=== PATIENT | female | born 1990 | race Caucasian/White ===

== ENCOUNTER 2021-09-15 22:32 | Inpatient (IN) ==
[2021-09-15] MEDS ORDERED: OXYTOCIN 30 UNITS/500 ML BAG IV PRN (23:15)
[2021-09-15 23:52] LABS: Hematocrit (blood only) 39.6 % (37-47); Hemoglobin 13.3 g/dL (12.0-16.0); Mean Corpuscular Hemoglobin 32.1 pg (25-34); Mean Corpuscular Hgb Conc 33.6 g/dL (32-36); Mean Corpuscular Volume 95.7 fL (80-100); Mean Platelet Volume 10.2 fL (7.4-10.4); Platelet Count 283 K/uL (130-400); RDW Coefficient of Variation 13.5 % (11.5-14.5); RDW Standard Deviation 46.2 fL (36.4-46.3); Red Blood Count 4.14 M/uL (4.2-5.4); White Blood Count 11.15 K/uL (4.8-10.8)
[2021-09-16] MEDS ORDERED: OXYTOCIN 30 UNITS/500 ML BAG IV PRN (01:16)
--- NOTE | 2021-09-16 01:16 | Labor Progress Brief Note ---
Date of Service September 16, 2021 Subjective Returned from ambulating, definitely feeling more contractions than before Assessment & Plan (1) PROM (premature rupture of membranes): Plan: Beginning to feel contractions but still not making cervical change. Discussed augmentation with pitocin due to PROM. Patient is 36w5d but is known GBS neg so no abx needed. Epidural on request. Patient and FOB deny having questions for me at this time. Admission and Anticipated Discharge Date Admission Date: September 15, 2021 Physical Exam Genitourinary: LOF clear (copious) FHT Cat 1 [place] Q4 Results & Data ([facility]) Vital Signs (Past 12 Hours) Vital Signs Temp Pulse Resp BP 09/15/21 23:01 64 122/77 09/15/21 22:53 97.9 F 78 18 140/86 09/15/21 22:50 97.9 F 78 18 140/86 09/15/21 22:49 72 141/89 H Coding Level of Care Code None Diagnoses PROM (premature rupture of membranes) O42.90
[2021-09-16] MEDS: LACTATED RINGER'S 1,000 ML IV PRN ×2 (01:30→05:48)
[2021-09-16] MEDS ORDERED: ePHEDrine sulfate 50 MG/ML AMP ONE (02:37)
[2021-09-16] MEDS ORDERED: SODIUM CHLORIDE 0.9% INJ 10 ML VIAL ONE (02:37)
[2021-09-16] MEDS ORDERED: BUPIVACAINE 0.25% 30 ML VIAL ONE (02:37)
[2021-09-16] MEDS ORDERED: fentaNYL 2MCG/ML ROPIVACAINE 1.25MG/ML 100 ML BAG EPI ONE (02:38)
[2021-09-16] MEDS ORDERED: fentaNYL citrate 100 MCG/2 ML VIAL ONE (02:38)
--- NOTE | 2021-09-16 02:56 | Anesthesiology Consultation ---
Date of Service September 16, 2021 Assessment & Plan Chart Review Chart Review: Acceptable Risk for Surgery, Patient NOT seen in Pre Admission Testing and Acceptable Risk for Labor Epidural Consults Requested none ASA ASA2 Proposed Anesthesia Anesthesia Type: Labor Epidural and CSE History Height/Weight Height: 5 ft 6 in Weight: 88.451 kg Allergies Allergy/AdvReac Type Severity Reaction Status Date / Time No Known Allergies Allergy Verified 09/11/21 14:56 Medications Home Medications Medication Instructions Recorded Confirmed Last Taken omeprazole 20 mg capsule,delayed 20 mg PO BID 02/21/21 09/15/21 09/15/21 release vit no.95-ferrous 1 tab PO DAILY 09/15/21 09/15/21 09/15/21 fumarate 28 mg-folic acid 800 mcg tablet () Active Medications Generic Name Dose Route Start Last Admin Trade Name Freq PRN Reason Stop Dose Admin Lactated Ringer's 1,000 mls @ 125 mls/hr 09/15/21 23:15 09/16/21 02:51 Lr IV 09/17/21 23:14 999 mls/hr .Q8H PRN Infusion L&D Protocol Protocol Oxytocin 30 units in 500 mls @ 3 mls/hr 09/16/21 01:16 09/16/21 02:01 Pitocin IV 09/18/21 01:15 0.18 units/hr .Q24H PRN 3 mls/hr Labor Induction/Augmentation Titration Protocol 0.18 UNITS/HR Past Medical History Medical History History of chicken pox Exercise / Class Metabolic Activity II 4-5 Yardwork/Stairs/Walk up hill Past Family History Family History Grandmother (Paternal) Breast cancer Grandmother (Maternal) Diabetes Father Myocardial infarction Stroke Grandfather (Paternal) Heart disease Denies family history of Ovarian cancer Prostate cancer Colorectal cancer Past Surgical History Surgical History H/O wisdom tooth extraction Past Anesthesia History No Hx of Anesthesia Complications and No Family Hx of Anesthesia Complications History of PONV No Hx of PONV and No Hx of Motion Sickness Social History Smoking Status: Never smoker Hx Alcohol Use: No Hx Substance Use: No Physical Exam Vital Signs Last Vital Signs Temp 36.8 C 09/16/21 01:10 Pulse 76 09/16/21 02:48 Resp 18 09/16/21 01:32 BP 143/89 H 09/16/21 02:34 Pulse Ox 100 09/16/21 02:48 Testing Laboratory Results 09/15/21 23:43
[2021-09-16] MEDS ORDERED: LIDOCAINE 1% LOCAL 20 ML VIAL ONE (03:21)
[2021-09-16] MEDS ORDERED: fentaNYL 2MCG/ML ROPIVACAINE 1.25MG/ML 100 ML BAG EPI PRN (03:38)
[2021-09-16] MEDS ORDERED: NALBUPHINE HCL INJ 10 MG/ML AMP IV PRN (03:38)
[2021-09-16] MEDS ORDERED: diphenhydrAMINE 50 MG/ML VIAL IV PRN (03:38)
[2021-09-16] MEDS ORDERED: NALOXONE HCL 0.4 MG/1 ML VIAL/CARP IV PRN (03:38)
[2021-09-16] MEDS ORDERED: ePHEDrine sulfate 50 MG/ML AMP IV PRN (03:38)
[2021-09-16] MEDS ORDERED: NALOXONE HCL 1 MG in SODIUM CHLORIDE 0.9% 1000ML 1,000 ML IV PRN (03:38)
[2021-09-16] MEDS ORDERED: PROMETHAZINE HCL 25 MG in SODIUM CHLORIDE 0.9% 50 ML IV PRN (03:38)
[2021-09-16] MEDS ORDERED: ONDANSETRON INJ 2 MG/ML 2 ML VIAL IV PRN (03:38)
--- NOTE | 2021-09-16 07:16 | Labor Progress Brief Note ---
Date of Service September 16, 2021 Subjective Comfortable with epidural Assessment & Plan (1) PROM (premature rupture of membranes): Plan: Progressing well, anticipate 2nd stage soon Admission and Anticipated Discharge Date Admission Date: September 15, 2021 Physical Exam Genitourinary: Per RN exam, 9cm at last check. FHT reviewed, Cat 1 [place] Q2 Results & Data ([facility]) Vital Signs (Past 12 Hours) Vital Signs Temp Pulse Resp BP Pulse Ox 09/16/21 07:12 91 H 100 09/16/21 07:07 106 H 100 09/16/21 07:02 104 H 100 09/16/21 07:00 101 H 124/84 09/16/21 06:57 103 H 100 09/16/21 06:52 82 100 09/16/21 06:47 84 100 09/16/21 06:45 82 121/81 09/16/21 06:42 89 99 09/16/21 06:37 84 100 09/16/21 06:32 83 100 09/16/21 06:31 75 123/80 09/16/21 06:29 81 124/81 09/16/21 06:27 84 100 09/16/21 06:22 76 100 09/16/21 06:17 74 100 09/16/21 06:14 93 H 127/84 09/16/21 06:13 68 99 09/16/21 06:07 70 100 09/16/21 06:02 75 100 09/16/21 06:00 75 126/85 09/16/21 05:57 70 100 09/16/21 05:52 71 100 09/16/21 05:47 71 100 09/16/21 05:46 72 125/77 09/16/21 05:42 66 100 09/16/21 05:37 68 100 09/16/21 05:33 60 100 09/16/21 05:30 71 116/56 L 09/16/21 05:27 59 L 99 09/16/21 05:23 55 L 96 09/16/21 05:18 55 L 96 09/16/21 05:14 60 116/63 09/16/21 05:12 56 L 96 09/16/21 05:07 56 L 97 09/16/21 05:04 56 L 94 09/16/21 05:03 58 L 98 09/16/21 05:00 98.2 F 53 L 110/57 L 09/16/21 04:57 57 L 96 09/16/21 04:54 58 L 94 09/16/21 04:52 57 L 96 09/16/21 04:47 58 L 96 09/16/21 04:46 53 L 109/57 L 09/16/21 04:43 54 L 96 09/16/21 04:38 54 L 97 09/16/21 04:33 65 97 09/16/21 04:29 53 L 106/63 09/16/21 04:28 54 L 98 09/16/21 04:23 56 L 98 09/16/21 04:18 55 L 99 09/16/21 04:15 75 113/72 09/16/21 04:12 60 94 09/16/21 04:08 56 L 95 09/16/21 04:06 59 L 93 09/16/21 04:03 61 96 09/16/21 03:59 69 93 09/16/21 03:58 63 96 09/16/21 03:56 65 110/65 09/16/21 03:53 63 96 09/16/21 03:52 62 107/63 09/16/21 03:51 66 94 09/16/21 03:48 65 98 09/16/21 03:46 59 L 109/64 09/16/21 03:44 55 L 111/69 09/16/21 03:43 74 98 09/16/21 03:42 74 99/58 L 09/16/21 03:40 74 100/57 L 09/16/21 03:38 69 110/66 98 09/16/21 03:36 68 109/67 09/16/21 03:34 64 109/64 09/16/21 03:33 69 100 09/16/21 03:32 68 102/59 L 09/16/21 03:30 70 95/55 L 09/16/21 03:28 62 98 09/16/21 03:23 80 99 09/16/21 03:18 84 100 09/16/21 03:13 81 100 09/16/21 03:08 86 100 09/16/21 03:05 98.2 F 09/16/21 03:03 77 100 09/16/21 02:58 76 100 09/16/21 02:53 86 100 09/16/21 02:48 76 100 09/16/21 02:43 79 100 09/16/21 02:34 68 143/89 H 09/16/21 01:32 62 18 123/76 09/16/21 01:10 98.2 F 09/15/21 23:01 64 122/77 09/15/21 22:53 97.9 F 78 18 140/86 09/15/21 22:50 97.9 F 78 18 140/86 09/15/21 22:49 72 141/89 H Coding Level of Care Code None Diagnoses PROM (premature rupture of membranes) O42.90
--- NOTE | 2021-09-16 08:22 | Delivery Summary ---
Vaginal Delivery Summary Date of Service September 16, 2021 Vaginal Delivery Summary DIAGNOSES: 1. Beck intrauterine at 36w5d gestation. 2. PROM with IOL. 3. Group B Streptococcus Neg. PROCEDURE: Spontaneous vaginal delivery without laceration. SURGEON: Briana Fam MD. IMPLEMENTATION ADVISOR: None. ESTIMATED BLOOD LOSS: 250 mL. COMPLICATIONS: None. PLACENTA: Spontaneous and intact with a 3-vessel cord. DISPOSITION: Stable to labor and delivery. DESCRIPTION: The patient pushed well and brought the head to in DOA position. The infant's head was allowed to deliver with contraction force and no further active pushing, with the perineum protected during this time. There was no nuchal cord. The right shoulder was anterior. The shoulders and body delivered without any difficulty, and the was placed on the maternal abdomen. It was vigorous and moving all extremities, and making respiratory efforts. The cord was doubly clamped by the MD and then cut by SUSANNAH Webber. The placenta delivered spontaneously and was noted to be intact and with a 3VC. The cervix, vagina and perineum were examined and were found to be without defect requiring repair. The fundus was firm and lochia minimal immediately after delivery. [facility] [place]aginal Delivery Charge Vaginal Delivery Codes: 78656 global code for the antepartum, delivery, and post-
[2021-09-16] MEDS ORDERED: ACETAMINOPHEN 325 MG TAB PO PRN (08:46)
[2021-09-16] MEDS ORDERED: oxyCODONE/ACETAMINOPHEN 5mg/325mg TAB PO PRN (08:46)
[2021-09-16] MEDS ORDERED: HYDROCORTISONE ACETATE 25 MG SUPP PR PRN (08:46)
[2021-09-16] MEDS ORDERED: DIPHTHERIA/TETANUS/PERTUSSIS 0.5 ML SYR/VIAL IM ONE (08:46)
[2021-09-16] MEDS ORDERED: BENZOCAINE 20% AER SPR 82.5 GM CAN EXT PRN (08:46)
[2021-09-16] MEDS ORDERED: SUPERCREAM 0.870% 15 GM JAR EXT PRN (08:46)
--- NOTE | 2021-09-16 10:10 | Obstetrical Progress Note ---
Date of Service September 16, 2021 Assessment & Plan Admission and Anticipated Discharge Date Admission Date: September 15, 2021 Subjective Called to room by RN for small amount of bleeding. I came to room for exam. Fundus firm, no clots expressed with fundal massage. I performed speculum exam, evaluated vagina and cervix. The cervix was intact, no lacerations or bleeding. There was a small amount of bleeding coming from an internal vaginal laceration in the posterior vagina - deep to the introitus, so not a perineal laceration, and perineum itself is intact. Patient's epidural has already been removed. Since the amount of bleeding was small - approx 50cc during the entirety of my evaluation, exam, discussion, and also because application of direct pressure to the oozing lacerated area appeared to stop the bleeding, I offered patient that we could use lidocaine to try to numb area and place sutures to obtain hemostasis, vs try to use vaginal packing to apply pressure to the area. She elected against suturing - therefore, placed cummings catheter to empty bladder while packing in place. One lap sponge was rolled and placed in vagina to apply pressure. Vital signs stable, will check H/H now. Results & Data ([facility]) Vital Signs (Past 12 Hours) Vital Signs Temp Pulse Resp BP Pulse Ox 09/16/21 09:52 75 132/83 09/16/21 09:37 74 130/71 09/16/21 09:22 73 115/67 09/16/21 09:07 84 121/72 09/16/21 08:52 76 116/79 09/16/21 08:38 20 09/16/21 08:37 80 119/72 09/16/21 08:27 76 100 09/16/21 08:23 82 20 131/70 09/16/21 08:22 79 100 09/16/21 08:17 81 100 09/16/21 08:15 88 117/75 09/16/21 08:12 136 H 98 09/16/21 08:11 127 H 92 09/16/21 08:07 102 H 98 09/16/21 08:02 84 98 09/16/21 08:01 20 09/16/21 08:00 88 129/69 09/16/21 07:57 92 H 99 09/16/21 07:52 86 99 09/16/21 07:47 87 151/90 H 99 09/16/21 07:46 20 09/16/21 07:42 135 H 100 09/16/21 07:37 104 H 98 09/16/21 07:34 113 H 91 09/16/21 07:32 89 100 09/16/21 07:31 20 09/16/21 07:30 120 H 145/82 H 09/16/21 07:27 102 H 100 09/16/21 07:22 109 H 99 09/16/21 07:17 95 H 143/79 H 100 09/16/21 07:15 36.7 C 20 09/16/21 07:12 91 H 100 09/16/21 07:07 106 H 100 09/16/21 07:02 104 H 100 09/16/21 07:00 101 H 124/84 09/16/21 06:57 103 H 100 09/16/21 06:52 82 100 09/16/21 06:47 84 100 09/16/21 06:45 82 121/81 09/16/21 06:42 89 99 09/16/21 06:37 84 100 09/16/21 06:32 83 100 09/16/21 06:31 75 123/80 09/16/21 06:29 81 124/81 09/16/21 06:27 84 100 09/16/21 06:22 76 100 09/16/21 06:17 74 100 09/16/21 06:14 93 H 127/84 09/16/21 06:13 68 99 09/16/21 06:07 70 100 09/16/21 06:02 75 100 09/16/21 06:00 75 126/85 09/16/21 05:57 70 100 09/16/21 05:52 71 100 09/16/21 05:47 71 100 09/16/21 05:46 72 125/77 09/16/21 05:42 66 100 09/16/21 05:37 68 100 09/16/21 05:33 60 100 09/16/21 05:30 71 116/56 L 09/16/21 05:27 59 L 99 09/16/21 05:23 55 L 96 09/16/21 05:18 55 L 96 09/16/21 05:14 60 116/63 09/16/21 05:12 56 L 96 09/16/21 05:07 56 L 97 09/16/21 05:04 56 L 94 09/16/21 05:03 58 L 98 09/16/21 05:00 36.8 C 53 L 110/57 L 09/16/21 04:57 57 L 96 09/16/21 04:54 58 L 94 09/16/21 04:52 57 L 96 09/16/21 04:47 58 L 96 09/16/21 04:46 53 L 109/57 L 09/16/21 04:43 54 L 96 09/16/21 04:38 54 L 97 09/16/21 04:33 65 97 09/16/21 04:29 53 L 106/63 09/16/21 04:28 54 L 98 09/16/21 04:23 56 L 98 09/16/21 04:18 55 L 99 09/16/21 04:15 75 113/72 09/16/21 04:12 60 94 09/16/21 04:08 56 L 95 09/16/21 04:06 59 L 93 09/16/21 04:03 61 96 09/16/21 03:59 69 93 09/16/21 03:58 63 96 09/16/21 03:56 65 110/65 09/16/21 03:53 63 96 09/16/21 03:52 62 107/63 09/16/21 03:51 66 94 09/16/21 03:48 65 98 09/16/21 03:46 59 L 109/64 09/16/21 03:44 55 L 111/69 09/16/21 03:43 74 98 09/16/21 03:42 74 99/58 L 09/16/21 03:40 74 100/57 L 09/16/21 03:38 69 110/66 98 09/16/21 03:36 68 109/67 09/16/21 03:34 64 109/64 09/16/21 03:33 69 100 09/16/21 03:32 68 102/59 L 09/16/21 03:30 70 95/55 L 09/16/21 03:28 62 98 09/16/21 03:23 80 99 09/16/21 03:18 84 100 09/16/21 03:13 81 100 09/16/21 03:08 86 100 09/16/21 03:05 36.8 C 09/16/21 03:03 77 100 09/16/21 02:58 76 100 09/16/21 02:53 86 100 09/16/21 02:48 76 100 09/16/21 02:43 79 100 09/16/21 02:34 68 143/89 H 09/16/21 01:32 62 18 123/76 09/16/21 01:10 36.8 C 09/15/21 23:01 64 122/77 09/15/21 22:53 36.6 C 78 18 140/86 09/15/21 22:50 36.6 C 78 18 140/86 09/15/21 22:49 72 141/89 H PG Care Time/CCT Total # of Minutes Spent Total Time Spent with Patient: Total time spent is greater than 50% in coordination of care (as documented) at patient's floor/unit and/or counseling patient: Coding Level of Care Code None
[2021-09-16 10:24] LABS: Hematocrit (blood only) 39.5 % (37-47); Hemoglobin 13.1 g/dL (12.0-16.0)
--- NOTE | 2021-09-16 10:28 | Anesthesia Procedure Note ---
Date of Service September 16, 2021 Anesthesia Post Epidural Note Vital Signs Vital Signs: Temp Pulse Resp BP Pulse Ox 36.7 C 71 20 121/73 100 09/16/21 07:15 09/16/21 10:22 09/16/21 09:07 09/16/21 10:22 09/16/21 08:27 Notes Mental Status: alert / awake / arousable and participated in evaluation Patient Amnestic to Procedure: No Nausea / Vomiting: adequately controlled Pain: adequately controlled Airway Patency, RR, SpO2: stable & adequate BP & HR: stable & adequate Hydration State: stable & adequate Neuraxial Anesthesia: was administered and sensory block is resolving Anesthetic Complications: no major complications apparent and Pt Satisfied with anesthetic care Epidural: Removed without complications and With tip intact
[2021-09-16] MEDS: IBUPROFEN 600 MG TAB PO PRN ×2 (10:54→20:44)
[2021-09-16] MEDS: DOCUSATE SODIUM 100 MG CAP PO SCH (20:44)
--- NOTE | 2021-09-17 07:10 | Obstetrical Progress Note ---
Date of Service September 17, 2021 Assessment & Plan (1) Encounter for supervision of normal intrauterine in primigravida, antepartum: Plan: 31 yo PPD 1 s/p at 36 5/7 weeks -Possible D/C today if pt feels up to it -Continue routine care -Vitals reviewed- HDS, afebrile -O+, GBS-, Rubella immune -Encourage ambulation, regular diet -Pain control with ibuprofen, acetaminophen PRN -Encouraged -F/u in [address] Fam Admission and Anticipated Discharge Date Admission Date: September 15, 2021 Supervising Physician Co-Signing Physician Notes Resident Physician Supervision Note: I interviewed and examined the patient. Discussed with Dr. Peralta and agree with findings and plan as documented in the note. Any exceptions or clarifications are listed here: PPD#1 doing well. Bleeding stopped after removal of vaginal packing yesterday evening. Considering DC home today - reviewed DC instructions. Documented By: Linh Domínguez, Subjective PPD 1 s/p . Patient seen and examined at bedside. Reports no acute overnight events. Ambulating and voiding. Passing gas. No BM yet. Regular diet w/o N/V. Lochia small amount. Breast feeding without difficulty. Pain 1/10 and well controlled with motrin. Did have the complaint of bleeding from vagina yesterday, but this has improved significantly and is no longer a concern to the pt. Review of Systems Review of Systems: Denies fevers/chills. Denies dyspnea, cough. Denies chest pain. Denies breast pain or discharge. Denies dysuria. Denies headache. Denies back pain. Physical Exam Physical Exam: General: Alert, oriented, no acute distress Cardiac: Regular rate and rhythm, normal S1, S2. No murmurs appreciated. Respiratory: Clear to auscultation b/l with good air flow entry, symmetric chest rise and fall. No wheezes or crackles. No increased work of breathing or accessory muscle use Abdomen: Soft, nontender, nondistended. Fundus firm and palpable at 1 cm below umbilicus. No guarding or rebound. Skin: No rashes or lesions Extremities: Warm, dry, well-perfused with capillary refill <2s b/l. No lower extremity edema, erythema or swelling. Negative Angus's sign b/l. Results & Data ([facility]) Vital Signs (Past 12 Hours) Vital Signs Temp Pulse Resp BP Pulse Ox 09/17/21 03:45 36.8 C 67 20 114/77 99 09/17/21 00:25 36.9 C 77 20 111/71 98 Resident Activity Tracking Resident Involvement: Resident Care Provided Care Provided: OB Delivery
[2021-09-17] MEDS ORDERED: PRENATAL VITAMIN 1 TAB PO SCH (08:00)
[2021-09-17] MEDS: DOCUSATE SODIUM 100 MG CAP PO SCH (08:26)
[2021-09-17] MEDS: IBUPROFEN 600 MG TAB PO PRN (08:27)
[2021-09-17 08:43] LABS: Hematocrit (blood only) 37.8 % (37-47); Hemoglobin 12.4 g/dL (12.0-16.0); Mean Corpuscular Hemoglobin 31.4 pg (25-34); Mean Corpuscular Hgb Conc 32.8 g/dL (32-36); Mean Corpuscular Volume 95.7 fL (80-100); Mean Platelet Volume 10.3 fL (7.4-10.4); Platelet Count 228 K/uL (130-400); RDW Coefficient of Variation 13.8 % (11.5-14.5); RDW Standard Deviation 47.6 fL (36.4-46.3); Red Blood Count 3.95 M/uL (4.2-5.4)
== END 2021-09-17 17:50 | disposition home or self-care (01) | DRG 807 ==
LOC: OPB 22:32 → 4S1 22:35 → 4S2 09-16 12:32

== ENCOUNTER 2024-06-03 03:36 | Inpatient (IN) ==
[2024-06-03] MEDS ORDERED: CALCIUM CARBONATE 500 MG CHEWABLE TAB PO PRN (04:20)
[2024-06-03] MEDS ORDERED: LIDOCAINE 1% LOCAL 20 ML VIAL INFIL PRN (04:20)
--- NOTE | 2024-06-03 04:20 | History & Physical Report ---
Date of Service June 03, 2024 Assessment & Plan (1) 39 weeks gestation of : (2) PROM (premature rupture of membranes): Plan admit,iv,labs, pitocin. fhts categ 1. History of Present Illness Chief Complaint: leaking fluid Primary Care Provider: NO PCP 33yo at 39 wks ega presents to LD with above cc. Clear fluid leaking. No ctx. No vb. +FM PNC unremarkable. PNL rh pos, ri, gbs neg. OBH: ptd at 36+wk GYNH: nl paps, no stds Allergies Allergy/AdvReac Type Severity Reaction Status Date / Time No Known Allergies Allergy Verified 06/03/24 03:55 Home Medications Medication Instructions Recorded Confirmed Type omeprazole 20 mg capsule,delayed 20 mg PO QAM 02/21/21 06/03/24 History release vit no.95-ferrous 1 tab PO QAM 09/15/21 06/03/24 History fumarate 28 mg-folic acid 800 mcg tablet () ferrous sulfate 325 mg (65 mg 325 mg PO Q OTHER DAY 04/20/24 06/03/24 History iron) tablet (Feosol) Patient History Medical History (Updated 06/03/24 @ 04:20 by María Shipman MD, FACOG) History of gastroesophageal reflux (GERD) (10/06/17) History of chicken pox Molar History of COVID-19 04/2022- asymptomatic, tested d/t positive contact () Surgical History History of D&C molar 2022 History of esophagogastroduodenoscopy (EGD) Hx of colonoscopy H/O wisdom tooth extraction Family History Grandmother (Paternal) Breast cancer Grandmother (Maternal) Diabetes Father Myocardial infarction Stroke Grandfather (Paternal) Heart disease Other No family history of adverse response to anesthesia Denies family history of Ovarian cancer Prostate cancer Colorectal cancer Social History Smoking Status: Never smoker Second Hand Exposure: No; Do You Dip or Chew Tobacco: No; Hx Alcohol Use: No Hx Substance Use: No Preferred Language: Croatian Communication Ability: Effective Visual Impairment: No Limitations Hearing Ability: Normal Tar Distributor Operator Required: No Beliefs That Will Affect Care: None marital status: marital status details: Gonsalo Kelly (33) [phone] Current Living Situation: Spouse Current Living Situation Comment: House with and daughter current occupational status: employed 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 Other Information That Helps Us Care for You: No Feels Safe at Home: Yes Safety Concerns: Feels Safe At This Time Assistive Devices: None Review of Systems as per Subjective / HPI Physical Exam Constitutional: WD/WN, vitals as above Respiratory: normal respiratory effort, lungs clear to auscultation Cardiovascular: Rate/Rhythm: regular rate and regular rhythm Gastrointestinal (Abdomen): soft gravid nt efw 7-8# Musculoskeletal: no edema nontender calves Neurologic: grossly normal Psychiatric: A+Ox3, euthymic affect Genitourinary: Manual OB Exam: + cervical dilation 4 cm, + cervical effacement 80%, + station -2 and + amniotic fluid (gross srom) clear OB Exam Monitor Tracing: + external FHT monitor used, + external uterine monitor used (q4), + category I and + normal FHT variability Results & Data Vital Signs (Past 12 Hours) Vital Signs Temp Pulse Resp BP O2 Del Method 06/03/24 04:02 65 122/75 06/03/24 03:57 98.4 F 18 Room Air Coding Level of Care Code None Diagnoses 39 weeks gestation of Z3A.39 PROM (premature rupture of membranes) O42.90
[2024-06-03] MEDS: LACTATED RINGER'S 1,000 ML IV PRN (04:35)
[2024-06-03] MEDS: OXYTOCIN 30 UNITS/NSS 30 UNITS/500 ML BAG IV PRN ×2 (05:07→14:47)
[2024-06-03 05:14] LABS: Hematocrit (blood only) 38.7 % (37.0-47.0); Hemoglobin 12.8 g/dl (12.0-16.0); Mean Corpuscular Hgb Conc 33.1 g/dL (32.0-36.0); Mean Corpuscular Volume 90.6 fL (80.0-100.0); Mean Platelet Volume 10.1 fL (9.4-12.4); Platelet Count 259 K/uL (130-400); RDW Coefficient of Variation 15.2 % (11.5-14.5); RDW Standard Deviation 49.5 fL (36.4-46.3); Red Blood Count 4.27 M/uL (4.20-5.40)
[2024-06-03] MEDS: BUPIVACAINE 0.25% PF 30 ML VIAL ONE (05:49)
[2024-06-03] MEDS: LIDOCAINE 2%/EPINEPHRINE 1:200,000 20 ML PF ONE (05:49)
[2024-06-03] MEDS: fentANYL 2 MCG/ML BUPIVacaine 0.125%-NSS 100ML BAG ONE (05:54)
--- NOTE | 2024-06-03 06:04 | Anesthesiology Consultation ---
Date of Service June 03, 2024 Assessment & Plan Chart Review Chart Review: Acceptable Risk for Surgery Consults Requested none History Height/Weight Height: 5 ft 7 in Weight: 90.718 kg Allergies Allergy/AdvReac Type Severity Reaction Status Date / Time No Known Allergies Allergy Verified 06/03/24 03:55 Medications Home Medications Medication Instructions Recorded Confirmed Last Taken omeprazole 20 mg capsule,delayed 20 mg PO QAM 02/21/21 06/03/24 06/02/24 07:00 release vit no.95-ferrous 1 tab PO QAM 09/15/21 06/03/24 06/02/24 07:00 fumarate 28 mg-folic acid 800 mcg tablet () ferrous sulfate 325 mg (65 mg 325 mg PO Q OTHER DAY 04/20/24 06/03/24 06/02/24 07:00 iron) tablet (Feosol) Active Medications Generic Name Dose Route Start Last Admin Trade Name Freq PRN Reason Stop Dose Admin Lactated Ringer's 1,000 mls @ 125 mls/hr 06/03/24 04:20 06/03/24 05:35 Lr IV 06/05/24 04:19 125 mls/hr .Q8H PRN Administration L&D Protocol Protocol Oxytocin 30 units in 500 mls @ 1 mls/hr 06/03/24 04:20 06/03/24 05:07 Pitocin 30 Units/Nss IV 06/05/24 04:19 0.06 units/hr .Q24H PRN 1 mls/hr Labor Induction/Augmentation Administration Protocol 0.06 UNITS/HR Past Medical History Medical History (Updated 06/03/24 @ 04:20 by María Shipman MD, FACOG) History of gastroesophageal reflux (GERD) (10/06/17) History of chicken pox Molar History of COVID-19 04/2022- asymptomatic, tested d/t positive contact () Past Family History Family History Grandmother (Paternal) Breast cancer Grandmother (Maternal) Diabetes Father Myocardial infarction Stroke Grandfather (Paternal) Heart disease Other No family history of adverse response to anesthesia Denies family history of Ovarian cancer Prostate cancer Colorectal cancer Past Surgical History Surgical History History of D&C molar 2022 History of esophagogastroduodenoscopy (EGD) Hx of colonoscopy H/O wisdom tooth extraction Social History Smoking Status: Never smoker Do You Dip or Chew Tobacco: No Hx Alcohol Use: No alcohol intake frequency: holidays/special occasions only Hx Substance Use: No substance use type: does not use Physical Exam Vital Signs Last Vital Signs Temp 36.9 C 06/03/24 04:02 Pulse 83 06/03/24 06:00 Resp 18 06/03/24 04:02 BP 109/59 L 06/03/24 06:00 Pulse Ox 99 06/03/24 06:00 O2 Del Method Room Air 06/03/24 03:57 Testing Laboratory Results 06/03/24 04:30
[2024-06-03] MEDS ORDERED: LIDOCAINE 2% MPF LOCAL 5 ML VIAL EPI PRN (06:05)
[2024-06-03] MEDS ORDERED: fentaNYL citrate PF 100 MCG/2 ML VIAL EPI PRN (06:05)
[2024-06-03] MEDS ORDERED: NALBUPHINE HCL INJ 10 MG/ML AMP IV PRN (06:05)
[2024-06-03] MEDS ORDERED: SODIUM CHLORIDE 0.9% PF INJ 10 ML VIAL EPI PRN (06:05)
[2024-06-03] MEDS ORDERED: ePHEDrine sulfate 50 MG/ML AMP IV PRN (06:05)
[2024-06-03] MEDS ORDERED: BUPIVACAINE 0.25% PF 30 ML VIAL EPI PRN (06:05)
[2024-06-03] MEDS ORDERED: diphenhydrAMINE 50 MG/ML VIAL IV PRN (06:05)
[2024-06-03] MEDS ORDERED: NALOXONE HCL 1 MG in SODIUM CHLORIDE 0.9% 1,000 ML IV PRN (06:05)
[2024-06-03] MEDS ORDERED: ROPIVACAINE 0.5% PF 5 MG/ML 20 ML VIAL EPI PRN (06:05)
[2024-06-03] MEDS ORDERED: NALOXONE HCL 0.4 MG/1 ML VIAL/CARP IV PRN (06:05)
[2024-06-03] MEDS: SODIUM CHLORIDE 0.9% PF INJ 10 ML VIAL ONE (06:13)
[2024-06-03] MEDS: ePHEDrine sulfate 50 MG/ML AMP ONE (06:13)
[2024-06-03] MEDS: fentaNYL citrate PF 100 MCG/2 ML VIAL ONE (06:13)
[2024-06-03] MEDS: SODIUM CHLORIDE 0.9% PF INJ 10 ML VIAL EPI STA (06:39)
[2024-06-03] MEDS: BUPIVACAINE 0.25% PF 30 ML VIAL EPI STA (06:39)
[2024-06-03] MEDS: fentaNYL citrate PF 100 MCG/2 ML VIAL EPI STA (06:39)
[2024-06-03] MEDS: LIDOCAINE 2%/EPINEPHRINE 1:200,000 20 ML PF EPI STA (06:39)
--- NOTE | 2024-06-03 08:52 | Labor Progress Brief Note ---
Date of Service June 03, 2024 Subjective comfortable w/ epidural Assessment & Plan (1) 39 weeks gestation of : (2) PROM (premature rupture of membranes): Plan 33 yo at 39 wga admitted w/ srom VSS Fetus cat 1 Pit at 9, continue augmentation GBS neg epidural in place Admission and Anticipated Discharge Date Admission Date: June 03, 2024 Physical Exam Genitourinary: Manual OB Exam: + cervical dilation 5 cm, + cervical effacement 80% and + station -1 OB Exam Monitor Tracing: + external FHT monitor used, + external uterine monitor used (q3-6, some coupling) and + category I (130/mod/+accel/-decel) Results & Data Vital Signs (Past 12 Hours) Vital Signs Temp Pulse Resp BP Pulse Ox O2 Del Method 06/03/24 08:46 60 114/72 06/03/24 08:45 63 97 06/03/24 08:40 63 98 06/03/24 08:35 73 98 06/03/24 08:31 90 117/69 06/03/24 08:30 60 97 06/03/24 08:25 62 98 06/03/24 08:20 69 98 06/03/24 08:17 53 L 115/68 06/03/24 08:15 82 98 06/03/24 08:10 62 99 06/03/24 08:05 78 100 06/03/24 08:01 60 114/72 06/03/24 08:00 68 99 06/03/24 07:55 64 98 06/03/24 07:50 67 100 06/03/24 07:46 63 111/71 06/03/24 07:45 62 98 06/03/24 07:40 62 99 06/03/24 07:35 64 98 06/03/24 07:32 88 110/69 06/03/24 07:30 74 98 06/03/24 07:25 60 98 06/03/24 07:20 80 100 06/03/24 07:18 60 103/59 L 06/03/24 07:15 82 100 06/03/24 07:10 98.6 F 64 20 99 06/03/24 07:05 76 100 06/03/24 07:01 57 L 105/60 06/03/24 07:00 57 L 100 06/03/24 06:55 57 L 98 06/03/24 06:50 60 97 06/03/24 06:48 57 L 111/59 L 06/03/24 06:45 63 99 06/03/24 06:40 73 99 06/03/24 06:35 67 98 06/03/24 06:31 82 108/68 06/03/24 06:30 57 L 16 98 06/03/24 06:28 57 L 107/61 06/03/24 06:25 97 H 98 06/03/24 06:22 58 L 105/55 L 06/03/24 06:20 59 L 99 06/03/24 06:17 56 L 108/55 L 06/03/24 06:15 57 L 99 06/03/24 06:13 57 L 104/58 L 06/03/24 06:10 65 99 06/03/24 06:07 78 102/58 L 06/03/24 06:05 66 100 06/03/24 06:00 98.1 F 83 18 109/59 L 99 06/03/24 05:58 73 97/56 L 06/03/24 05:56 61 105/59 L 06/03/24 05:55 64 99 06/03/24 05:54 75 108/62 06/03/24 05:52 61 105/59 L 06/03/24 05:50 72 106/63 100 06/03/24 05:48 67 115/66 06/03/24 05:47 76 127/74 06/03/24 05:45 82 99 06/03/24 05:40 73 100 06/03/24 05:35 80 100 06/03/24 05:30 70 100 06/03/24 05:25 81 100 06/03/24 05:21 60 124/74 06/03/24 05:20 69 100 06/03/24 04:02 98.4 F 65 18 122/75 06/03/24 03:57 98.4 F 18 Room Air Coding Level of Care Code None Diagnoses 39 weeks gestation of Z3A.39 PROM (premature rupture of membranes) O42.90
[2024-06-03] MEDS: fentANYL 2 MCG/ML BUPIVacaine 0.125%-NSS 100ML BAG EPI PRN (13:37)
--- NOTE | 2024-06-03 14:19 | Delivery Summary ---
Vaginal Delivery Summary Date of Service June 03, 2024 Vaginal Delivery Summary [facility] PREOPERATIVE DIAGNOSIS: 1. Single intrauterine at 39 wga 2. PROM POSTOPERATIVE DIAGNOSIS: 1. Single intrauterine at 39 wga 2. PROM 3. Delivered PROCEDURE: 1. Normal spontaneous vaginal delivery. SURGEON: Gina Burton MD ANESTHESIA: Epidural. QUANTITATIVE BLOOD LOSS: 10 mL FLUIDS: Continuous LR. URINE OUTPUT: None. COMPLICATIONS: None. CONDITION: Stable. INDICATIONS: 33 yo at 39 wga presented with premature rupture of membranes. She was 4cm on arrival. Pitocin was started and she received an epidural. She progressed to complete and desired to push. FINDINGS: A viable female , weight pending with Apgars of 8 and 8 at 1 and 5 minutes respectively. SPECIMEN: Cord blood OPERATIVE REPORT: The patient progressed to 10 cm, 100% effaced and +2 station, pushed over intact perineum with anesthesia to deliver a viable female infant, weight and Apgars as above. Head of delivered in OP position. No nuchal cord was present. Body and shoulders were delivered without difficulty. was delivered to maternal abdomen and nursing staff. Delayed cord clamping was performed for 60 seconds. Cord was clamped and cut. Cord blood was obtained. Placenta delivered spontaneously intact with 3-vessel cord. IV oxytocin and fundal massage were given for excellent hemostasis. Vagina, cervix, perineum, and placenta were inspected. A vaginal laceration was repaired using 3-0 vicryl, there was good hemostasis. Sponge and needle counts correct x2. No sponges were left behind. Mother and stable in immediate period. [facility] Vaginal Delivery Charge Vaginal Delivery Codes: 72591 global code for the antepartum, delivery, and post- Delivery Type Details: [facility]
[2024-06-03] MEDS: PANTOprazole 40 MG TAB PO SCH (14:29)
[2024-06-03] MEDS ORDERED: bisacodyL 10 MG SUPP PR PRN (14:39)
[2024-06-03] MEDS ORDERED: HYDROCORTISONE ACETATE 25 MG SUPP PR PRN (14:39)
[2024-06-03] MEDS ORDERED: OXYTOCIN 30 UNITS/NSS 30 UNITS/500 ML BAG IV PRN (14:39)
[2024-06-03] MEDS: IBUPROFEN 600 MG TAB PO PRN (15:27)
[2024-06-03] MEDS: BENZOCAINE 20% SPRY 85 APPLN/85 GM CAN EXT PRN (15:28)
--- NOTE | 2024-06-03 15:32 | Anesthesia Procedure Note ---
Date of Service June 03, 2024 Anesthesia Post Epidural Note Vital Signs Vital Signs: Temp Pulse Resp BP Pulse Ox O2 Del Method 97.9 F 95 H 20 127/59 L 91 Room Air 06/03/24 14:16 06/03/24 15:17 06/03/24 15:15 06/03/24 15:17 06/03/24 14:18 06/03/24 03:57 Pain Intensity Abdomen: Pain Intensity: 4 Notes Mental Status: alert / awake / arousable and participated in evaluation Nausea / Vomiting: adequately controlled Pain: adequately controlled Airway Patency, RR, SpO2: stable & adequate BP & HR: stable & adequate Hydration State: stable & adequate Neuraxial Anesthesia: was administered and sensory block is resolving Anesthetic Complications: no major complications apparent and Pt Satisfied with anesthetic care Epidural: Removed without complications and With tip intact
[2024-06-03] MEDS: DIPHTHER/TETAN/PERTUS Vaccine (Tdap, Adol/Adult) 0.5mL IM ONE (15:51)
[2024-06-03] MEDS: ACETAMINOPHEN 325 MG TAB PO PRN (18:02)
[2024-06-03] MEDS: DOCUSATE SODIUM 100 MG CAP PO SCH (21:27)
--- NOTE | 2024-06-04 07:59 | Obstetrical Progress Note ---
Date of Service June 04, 2024 Assessment & Plan (1) Encounter for care and examination after delivery: 33 yo PP1 from , doing well -Had cummings placed overnight due to retention, will have it removed this PM and see if can void -O+/rubella immune/ -f/u 6 weeks for appt, may desire dc this pm pending void trial, otherwise continue routine care Subjective Ambulation: ambulating normally Voiding: cummings catheter in place (placed due to retention this AM) Passing Gas:: Yes Diet Tolerance:: regular diet Lochia:: Small Feeding Type:: breast feeding Pain well managed with medication Review of Systems Denies fevers, chills, n/v, LAROSE, CP, SOB Physical Exam Constitutional WD/WN, vitals as above no acute distress Respiratory normal respiratory effort, lungs clear to auscultation Cardiovascular RRR, no murmur, no edema Gastrointestinal (Abdomen) Percussion/Palpation: abdomen soft; abdomen nontender fundus firm at umbilicus and NT Musculoskeletal BLE symmetric, nonerythematous, nontender Results & Data Vital Signs (Past 12 Hours) Vital Signs Temp Pulse Resp BP Pulse Ox O2 Del Method 06/04/24 03:26 97.7 F 58 L 16 113/73 99 Room Air 06/03/24 23:24 98.1 F 64 18 113/69 97 Room Air 06/03/24 20:15 98.2 F 76 20 120/77 99 Room Air
[2024-06-04] MEDS: PRENATAL VITAMIN 1 TAB PO SCH (08:04)
[2024-06-04] MEDS: FERROUS SULFATE 325 MG TAB PO SCH (08:04)
[2024-06-04] MEDS: bisacodyL 5 MG TABEC PO SCH (20:45)
--- NOTE | 2024-06-05 05:39 | Obstetrical Progress Note ---
Date of Service June 05, 2024 Assessment & Plan (1) Encounter for care and examination after delivery: (2) Urinary retention with incomplete bladder emptying: Plan Pt is 33 yo post- day 1 s/p at 39w0d. was uncomplicated Encourage ambulation and breast feeding Motrin for pain control Cummings catheter to be placed. Pt will DC with Cummings Upon discharge, pt to follow up with Dr. Burton in 2 days for voiding challenge Admission and Anticipated Discharge Date Admission Date: June 03, 2024 Supervising Physician Co-Signing Physician Notes Resident Physician Supervision Note: I interviewed and examined the patient. Discussed with Dr. Naqvi and agree with findings and plan as documented in the note. Any exceptions or clarifications are listed here: PP2 s/p . Had cummings placed early yesterday am and removed yesterday pm. Able to void but throughout the night was voiding volumes 300-400 almost every hour so rec bladder scan which showed still 800+ after a large void. Discussed still appears to be retaining so can dc w/ cummings and will f/u in clinic weds for void trial. Meeting all milestones otherwise, dc home today Documented By: Gina Burton MD Subjective Pt is 33 yo post- day 2 s/p at 39w0d. was uncomplicated Ambulation:In and out of room Voiding: going frequently, but small amounts Passing gas: yes BM: yes Diet tolerance:regular diet Lochia:bloody, no clots Feeding type: breast Current pain level: 0-3 /10 improved with ibuprofen Resting comfortably this morning in NAD. Denies LAROSE, CP, SOB, N/V/D, LE pain/swelling. Review of Systems Review of Systems: As per HPI Physical Exam Constitutional: WD/WN, vitals as above Respiratory: normal respiratory effort, lungs clear to auscultation Cardiovascular: RRR, no murmur, no edema Gastrointestinal (Abdomen): normal bowel sounds, soft, nontender, no hepatosplenomegaly Uterine fundus firm and at level of umbilicus Neurologic: PERRL, EOMI, accommodation nl, no face palsy, no dysarthria Moving all 4 extremities on command Psychiatric: A+Ox3, euthymic affect Genitourinary: Bladder scan reveals 800+ mL in bladder post void Results & Data Vital Signs (Past 12 Hours) Vital Signs Temp Pulse Resp BP Pulse Ox O2 Del Method 06/04/24 23:23 36.7 C 58 L 18 121/75 98 Room Air 06/04/24 20:30 36.7 C 58 L 16 110/69 98 Room Air Resident Activity Tracking Resident Involvement: Resident Care Provided Care Provided: Adult Hospital Medicine
[2024-06-05 10:52] VITALS: BP 123/77; RESP 16; TEMP 98.4; O2SAT 99
[2024-06-05 10:54] VITALS: PULSE 65
== END 2024-06-05 10:00 | disposition home or self-care (01) | DRG 806 ==
LOC: OPB 03:36 → 4S1 03:42 → 4E2 18:04